=== PATIENT | female | born 1970 | race Caucasian/White ===

== ENCOUNTER → 2019-08-25 | Outpatient (CLI) | payer OTHER ==
[~2019-08-25] MED LIST: DEXI60CA2 PO; LISI10TA4 PO; METHACHOLINE KIT (J7674) INH ONE; MIRA3350 PO; ZANT150T40 PO
--- NOTE | 2019-08-25 16:30 | PFTRPT ---
Site: [facility], [address], [place], [address] ID: [id number] Name: TEO VARGAS Visit Date: 08/25/2019 Second ID: [id number] Referring Doctor: Pepito BEE, Simeon Jauregui Reviewing Doctor: Kostas Iqbal MD E Business Specialist: Vicenta Andino Age: 48 : 1970 Sex: Female Race: Height: 65.00 Inches Weight: 167.00 Lbs BSA: 1.83 Order IDs: [id number] Requested Test(s): <RESP-PFT.BROCHOPROV> Diagnosis: R06 of albuterol for postbronchodilator. Review Status: Not Reviewed Pre-Bronch Post-Bronch Pred Actual %Pred Actual %Chng SPIROMETRY FVC (L) 3.68 3.73 101 3.63 -2 FEV1 (L) 2.93 3.08 105 2.98 -3 FEV1/FVC (%) 80 83 103 82 FEF 25% (L/sec) 5.35 5.82 108 7.02 20 FEF 50% (L/sec) 3.95 4.50 113 4.62 2 FEF 75% (L/sec) 1.47 1.42 96 0.97 -31 FEF 25-75% (L/sec) 2.86 3.69 128 2.96 -19 FEF Max (L/sec) 6.93 5.82 83 7.38 26 FIVC (L) 3.07 3.14 2 FIF 50% (L/sec) 3.76 4.01 106 4.07 1 FIF Max (L/sec) 4.26 4.08 -4 Expiratory Time (sec) 7.11 6.97 -1 Back Extrap Vol (L) 0.15 0.11 -25 Time To FEFmax (sec) 0.153 0.096 -37
== END ==
LOC: M CARPUL 15:40
PROVIDERS: ATTEND Internal Medicine Pulmonary Disease
DX: R06.00 Dyspnea, unspecified (principal)
CPT/HCPCS: 94070; J7674